=== PATIENT | female | born 1935 | race Two or more races ===

== ENCOUNTER 2024-03-12 16:30 | Emergency (ER) | payer MEDICARE, MEDICAID, SELFPAY ==
[2024-03-12 17:05] VITALS: BP 132/78; PULSE 73; RESP 20; TEMP 37.9; O2SAT 98
--- NOTE | 2024-03-12 17:08 | XR_ITS ---
Examination: PA lateral chest 2 views TECHNIQUE: Upright PA lateral chest 2 views Exam date and time: March 12, 2023 at 1718 hours Comparison April 09, 2020 INDICATIONS: Coughing today. FINDINGS: Early bibasilar pneumonia Normal heart size Prominent hilar regions Moderate osteopenia Increased AP dimension chest Pneumonia also in the right middle lobe with volume loss IMPRESSION: COPD Bibasilar right middle lobe pneumonia
--- NOTE | 2024-03-12 17:08 | XR_ITS ---
Examination: Shoulder,right, 3 views Technique: Shoulder AP internal rotation, AP external rotation, Y view shoulder, 3 views Exam date and time :March 12, 2024 at 1713 hours INDICATIONS: Right shoulder pain beginning one month ago. FINDINGS: Moderate narrowing glenohumeral joint Prominent osteopenia No shoulder fracture or dislocation Prominent calcific tendinitis IMPRESSION: Moderate narrowing glenohumeral joint Prominent calcific tendinitis
--- NOTE | 2024-03-12 17:08 | PD.EDRME ---
Rapid Medical Screening Exam RME Arrival date/time: 03/12/24 16:30 88-year-old female presents emergency department today complaints of difficulty moving the right shoulder Incidentally patient was noted to have low-grade temp Chief Complaint: Extremity Problem,Nontraumatic Vital signs: Vital Signs Temperature 100.2 F 03/12/24 17:05 Pulse Rate 73 03/12/24 17:05 Respiratory Rate 20 03/12/24 17:05 Blood Pressure 132/78 H 03/12/24 17:05 Pulse Oximetry (%) 98 03/12/24 17:05 Oxygen Delivery Method Room Air 03/12/24 17:05
[2024-03-12 17:56] LABS: Lactate (Lactic Acid) 1.6 mMol/L (0.4-2.0)
[2024-03-12 17:59] LABS: Collection Type, Urine Clean Catch
[2024-03-12 18:01] LABS: Basophils % (Auto) 0 % (0-2.5); Eosinophils # (Auto) 0.1 Thou/mm3 (0.0-0.5); Eosinophils % (Auto) 2 % (0-10); Hematocrit 37.6 % (36.0-46.0); Hemoglobin 12.4 g/dL (12.0-16.0); Immature Granulocytes % (Auto) 0 % (0-0); Immature Granulocytes Auto 0.02 Thou/mm3 (0.00-0.00); Lymphocytes % (Auto) 18 % (10-50); Mean Corpuscular Hemoglobin 31.2 pg (25.0-35.0); Mean Corpuscular Volume 95 fL (80-100); Monocytes # (Auto) 0.6 Thou/mm3 (0.0-0.8); Monocytes % (Auto) 10 % (0-12); Neutrophils # (Auto) 3.9 Thou/mm3 (1.8-7.7); Neutrophils % (Auto) 69 % (37-80); Nucleated Red Blood Cell % 0 /100 WBC (0); Platelet Count 196 Thou/mm3 (140-440); RDW Standard Deviation 41.5 fL (36.4-46.3); Red Blood Count 3.97 Miln/mm3 (4.00-5.20); White Blood Count 5.6 Thou/mm3 (3.6-11.0)
[2024-03-12 18:13] LABS: Bilirubin,Urine Negative (Negative); Blood,Urine Negative (Negative); Clarity,Urine Clear (Clear/Hazy); Color,Urine Yellow (Lt Yel-Yel); Glucose, Urine Negative (Negative); Ketones,Urine Negative (Negative); Leukocyte Esterase,Urine Positive (Negative); Nitrite,Urine Negative (Negative); Protein,Urine Negative (Neg - Trace); RBC,Urine 4 /hpf (0-3); Specific Gravity,Urine 1.023 (1.001-1.035); Squamous Epithelial Cell,Urine 1 /hpf (0-5); WBC,Urine 39 /hpf (0-5)
[2024-03-12 18:33] LABS: Alanine Aminotransferase 24 U/L (10-49); Albumin, Serum 4.7 gm/dL (3.4-4.8); Albumin/Globulin Ratio 1.5 (1.2-2.2); Alkaline Phosphatase 146 U/L (46-116); Anion Gap 7 (7-16); Aspartate Amino Transferase 24 U/L (0-34); BUN/Creatinine Ratio 13 Ratio (12-20); Bilirubin,Total 1.5 mg/dL (0.3-1.2); Blood Urea Nitrogen 14 mg/dL (9-23); Calcium 9.7 mg/dL (8.3-10.6); Calcium (Corrected) 9.7 mg/dL (8.5-10.1); Carbon Dioxide 29.4 mMol/L (20.0-31.0); Chloride 100 mMol/L (98-107); Creatinine (Component) 1.1 mg/dL (0.6-1.3); Globulin 3.1 gm/dL (2.3-3.5); Glucose 138 mg/dL (74-106); Osmolality,Calculated 274 (275-295); Potassium 4.6 mMol/L (3.4-5.1); Procalcitonin 0.06 ng/ml (0.0-0.49); Sodium 136 mMol/L (136-145); Total Protein 7.8 gm/dL (5.7-8.2); Uric Acid 5.3 mg/dL (3.1-7.8); eGFR 49 See Note
[2024-03-12 20:40] VITALS: BP 120/84; PULSE 76; RESP 19; TEMP 37.2; O2SAT 96
--- NOTE | 2024-03-12 21:02 | EDNOTE_ITS ---
ED Extremity Problem RME/HPI General Chief complaint: Extremity Problem,Nontraumatic Stated complaint: RIGHT SHOULDER/ARM PAIN x 1 MONTH Arrival date/time: 03/12/24 16:30 RME / HPI RME / HPI Narrative: 03/12/24 16:30 88-year-old female presents emergency department today complaints of difficulty moving the right shoulder Incidentally patient was noted to have low-grade temp ----- Dr. Gutierrez?s Main ED Evaluation: 88yo female with a history of arthritis accompanied by her son presents to the ED for a chief complaint of left shoulder pain x 7-8 days. Son states the patient's left shoulder pain has been progre ssively getting worse over the last 2 days. He took her to her PCP's office today and was given a prescription, but states the [facility] pharmacy was out of stock. He does not know what medication was prescribed. Son states the patient has been taking Tylenol at home without any alleviation of symptoms, so he brought her in for further evaluation. Patient denies any falls or injuries. Denies any other associated symptoms. Denies any history of similar symptoms. No known allergies. Related Data Previous Rx's ?Medication ?Instructions ?Recorded ibuprofen 400 mg tablet 400 mg PO TID PRN pain #9 tabs 03/12/24 lidocaine 5 % topical patch 1 patch topical QDAY #15 ea 03/12/24 (Lidoderm) Allergies Allergy/AdvReac Type Severity Reaction Status Date / Time No Known Allergies Allergy Verified 03/12/24 16:36 Review of Systems Review of Systems Systems Reviewed: All systems reviewed, normal except as documented Narrative Review of Systems: Gen: No fever, no chills, no weight loss EYES: No discharge, no visual changes, no pain HEENT: No ear pain, no congestion, no sore throat PULM: No shortness of breath, no cough, no congestion CV: No chest pain, no dyspnea on exertion, no palpitations GI: No nausea, no vomiting, no diarrhea, no pain, no constipation : No frequency, no urgency, no dysuria Musc/skel: + joint pain, no back pain Skin: No rash. Warm and dry. Psyc: No hallucinations, no depression Heme/Lymph: No easy bleeding or bruising tendencies Neuro: No weakness, no headache Past Medical History Past Medical History NEUROLOGIC: Negative Seizures CARDIAC: Negative Angina, Hypercholesterolemia, Congestive Heart Failure or Hypertension RESPIRATORY: Negative Chronic Obstructive Pulmonary Disease (COPD), Asthma, Tuberculosis or Sleep Apnea GASTROINTESTINAL: Positive Gall Bladder Disease (lap chuy) and Obesity GENITOURINARY: Negative Renal Disease REPRODUCTIVE: Positive Previous Pregnancies () MUSCULOSKELETAL: Positive Musculoskeletal Disorders and Arthritis; Negative Fractures ENT: Positive Cataracts ENDOCRINE: Negative Diabetes Mellitus Type 1 or Diabetes Mellitus Type 2 HEMATOLOGIC: Negative Blood Disorders PSYCHO/SOCIAL: Positive Anxiety OTHER HISTORY: Negative Blood Transfusions, Blood Transfusion Reaction, Anesthesia Reactions or Cancer Family History FAMILY HISTORY: Negative Family Cardiac Disorders, Family Cancer or Family Anesthesia Reaction Social History SMOKING STATUS: Never smoker SUBSTANCE USE: does not use ED Exam Narrative Physical exam: GENERAL APPEARANCE: AxOx4, generally well-appearing, no acute distress. HEENT: NC, AT. MMM. EOMI, clear conjunctiva, oropharynx clear. NECK: Supple without lymphadenopathy. No stiffness or restricted ROM. HEART: Normal rate and regular rhythm, normal S1/S1, no m/r/g LUNGS: CTAB, moving air well. No crackles or wheezes are heard. ABDOMEN: Soft, nontender, nondistended with good bowel sounds heard. BACK: No midline C/T/L spine pain or deformity, No CVAT, no obvious deformity. EXTREMITIES: Without cyanosis, clubbing or edema. No swelling, edema or warmness to the left shoulder. Pain with ROM of the shoulder. Limited abduction of the left shoulder. MUSCULOSKELETAL: FROM of all major joints, no chest tenderness NEUROLOGICAL: Grossly nonfocal. Alert and oriented, moving all 4 extremities. CN not formally tested but appear grossly intact. Observed to ambulate with normal gait. Skin: Warm and dry without Course Course Course Narrative: CXR is ordered for determining the etiology of fever. Quality Measures none Orders Category Date Time Status Bedside COVID-19 Antigen Test NOW Care 03/12/24 17:08 Active Bedside Influenza A&B Antigen Test NOW Care 03/12/24 17:08 Completed XR chest 2V Stat Exams 03/12/24 17:08 Completed XR shoulder RT min 2V Stat Exams 03/12/24 17:08 Completed Blood Culture (Lab) Stat Lab 03/12/24 17:35 Received CBC Stat Lab 03/12/24 17:33 Completed Comprehensive Metabolic Panel Stat Lab 03/12/24 17:33 Completed Lactate (Lactic Acid) Stat Lab 03/12/24 17:33 Completed Procalcitonin Stat Lab 03/12/24 17:33 Completed Uric Acid Stat Lab 03/12/24 17:33 Completed Urinalysis Stat Lab 03/12/24 17:45 Completed Urine Culture Stat Lab 03/12/24 17:45 Received Ibuprofen Tab [Motrin Tab] Med 03/12/24 21:04 Discontinued 400 mg PO X1 ONE Lidocaine 5% Patch Med 03/12/24 21:04 Discontinued 1 patch TOP X1 ONE Vital Signs Vital signs: Vital Signs Temperature 100.2 F 03/12/24 17:05 Pulse Rate 73 03/12/24 17:05 Respiratory Rate 20 03/12/24 17:05 Blood Pressure 132/78 H 03/12/24 17:05 Pulse Oximetry (%) 98 03/12/24 17:05 Oxygen Delivery Method Room Air 03/12/24 17:05 Pulse ox is 98% on room air, which is normal according to my interpretation. Extremity Problem MDM Narrative MDM Narrative:: Scribe Attestation: 03/12/24 - Rasheeda Nieto am scribing for and in the presence of Dr. Gutierrez. Patient data External records reviewed:: [facility] previous records (Per chart review, patient has no relevant previous ED visits.) Clinical information provided by:: patient and family Social determinants that could affect healthcare access:: none Patient has the following chronic illnesses:: CKD, arthritis How is presenting disease/condition affected by chronic disease/condition?: caused by Evaluation data The following diagnostics were reviewed and interpreted by me:: lab results and radiology exam(s) Lab and/or radiology exams considered but not ordered:: none Interpretation Summary: CBC is normal, Creatinine is normal, eGFT is 49, Lactic Acid is normal, Procalcitonin is normal, according to my interpretation. ---- [place] [facility] Report Signed Patient: LEXX PONCE [facility] Record#: [id number] Birthdate: 1935 Age/Sex: 88 / F Location: [facility] Attending Dr: Ordering Physician: Ann Marie (ANTONIO)Servando NP Date of Service: 03/12/24 Procedure(s): XR chest 2V Accession Number(s): [id number] cc: Ann Marie CELAYA),Servando ALVAREZ; Ghulam Ramirez MD~ Examination: PA lateral chest 2 views TECHNIQUE: Upright PA lateral chest 2 views Exam date and time: March 12, 2023 at 1718 hours Comparison April 09, 2020 INDICATIONS: Coughing today. FINDINGS: Early bibasilar pneumonia Normal heart size Prominent hilar regions Moderate osteopenia Increased AP dimension chest Pneumonia also in the right middle lobe with volume loss IMPRESSION: COPD Bibasilar right middle lobe pneumonia Dictated By: Ghulam Ramirez MD Signed By: <Electronically signed by Ghulam Ramirez MD in [place]> 03/12/245 [facility] Report Signed Patient: LEXX PONCE Record#: [id number] Birthdate: 1935 Age/Sex: 88 / F Location: [facility] Attending Dr: Ordering Physician: Ann Marie CELAYA),Servando ALVAREZ Date of Service: 03/12/24 Procedure(s): XR shoulder RT min 2V Accession Number(s): [id number] cc: Ann Marie (ANTONIO),Servando ALVAREZ; Ghulam Ramirez MD~ Examination: Shoulder,right, 3 views Technique: Shoulder AP internal rotation, AP external rotation, Y view shoulder, 3 views Exam date and time :March 12, 2024 at 1713 hours INDICATIONS: Right shoulder pain beginning one month ago. FINDINGS: Moderate narrowing glenohumeral joint Prominent osteopenia No shoulder fracture or dislocation Prominent calcific tendinitis IMPRESSION: Moderate narrowing glenohumeral joint Prominent calcific tendinitis Dictated By: Ghulam Ramirez MD Signed By: <Electronically signed by Ghulam Ramirez MD in [place]> 03/12/24 1736 Medications / Prescriptions Medications or Prescriptions considered but not ordered:: none Medication administrations:: Medication Administration History Discontinued Medications Ibuprofen (Ibuprofen Tab 400 Mg Tablet) 400 mg PO X1 ONE Stop: 03/12/24 21:05 Lidocaine (Lidocaine 5% 1 Patch) 1 patch TOP X1 ONE Stop: 03/12/24 21:05 see above Consultations Consultation(s) initiated? (list below): No Diagnosis Extremity Problem Differential Diagnosis: other (osteoarthritis, shoulder dislocation, pathological fracture) Most likely diagnosis given after review of the tests above:: osteoarthritis Admission Indicated Admission indicated?: not indicated Explain why admission is indicated or not indicated:: Admission criteria not met. patient is stable for outpatient management. Prescriptions for ibuprofen and lidocaine patches are sent to the pharmacy. Admission Request Was there a request for admission?: No Disposition Plan Disposition Plan: Discharge Discharge Attestation Discharge Attestation: The patient and all family members were given an opportunity to ask questions and understood the discharge instructions. Discharge instructions specifically effects, indications for sooner follow up or return to the emergency department, and the expected course of current diagnosis. Patient condition: Stable Discharge Plan Plan Patient Disposition: HOME (Self Care) Prescriptions/Referrals Prescriptions/Med Rec: New ibuprofen 400 mg tablet 400 mg PO TID MDD 3 tabs/day PRN (Reason: pain) Qty: 9 0RF lidocaine [Lidoderm] 5 % adhesive patch,medicated 1 patch topical QDAY Qty: 15 0RF Rx Instructions: leave on most painful area for up to 12 hrs Referrals: Kermit Amador MD [Primary Care Provider] - In 1 week Problem List Clinical Impression: Osteoarthritis Patient/Caregiver Discharge Instructions Education Materials: ED Osteoarthritis Additional Instructions: Rupal un seguimiento con ibrahim m?dico de atenci?n primaria en 3 a 5 d?as para volver a controlarlo. Puede regresar al departamento de emergencias si los s?ntomas empeoran o si tiene alg?n problema nuevo o preocupante. Print Language: Telugu Stand Alone Forms: Gloria Award Info., Patient Portal Info Letter
[2024-03-12] MEDS: IBUPROFEN TAB 400 MG TABLET PO (21:17)
[2024-03-12] MEDS: LIDOCAINE 5% 1 PATCH TOP (21:17)
== END 2024-03-12 21:25 | disposition home or self-care (01) ==
PROVIDERS: Nurse Practitioner Primary Care; Emergency Provider Emergency Medicine; PCP Family Medicine
DX: M19.011 Primary osteoarthritis, right shoulder (principal); M25.811 Other specified joint disorders, right shoulder; M75.31 Calcific tendinitis of right shoulder; J44.0 Chronic obstructive pulmonary disease with (acute) lower respiratory infection; J18.9 Pneumonia, unspecified organism
CPT/HCPCS: 36415; 71046; 73030; 80053; 81001; 83605; 84145; 84550; 85025; 87040; 87086; 87400; 87811; 99283; A9270

== ENCOUNTER → 2024-04-15 | Outpatient (CLI) | payer MEDICARE, MEDICAID, SELFPAY ==
[2024-04-14 11:00] LABS: Basophils % (Auto) 0 % (0-2.5); Eosinophils # (Auto) 0.1 Thou/mm3 (0.0-0.5); Eosinophils % (Auto) 3 % (0-10); Hemoglobin 12.7 g/dL (12.0-16.0); Immature Granulocytes % (Auto) 0 % (0-0); Immature Granulocytes Auto 0.01 Thou/mm3 (0.00-0.00); Lymphocytes # (Auto) 1.5 Thou/mm3 (1.0-4.8); Lymphocytes % (Auto) 34 % (10-50); Mean Corpuscular HGB Conc 32.6 g/dl (31.0-37.0); Mean Corpuscular Hemoglobin 31.3 pg (25.0-35.0); Mean Corpuscular Volume 96 fL (80-100); Monocytes # (Auto) 0.3 Thou/mm3 (0.0-0.8); Monocytes % (Auto) 7 % (0-12); Neutrophils # (Auto) 2.5 Thou/mm3 (1.8-7.7); Neutrophils % (Auto) 55 % (37-80); Nucleated Red Blood Cell % 0 /100 WBC (0); Platelet Count 144 Thou/mm3 (140-440); RDW Standard Deviation 43.8 fL (36.4-46.3); Red Blood Count 4.06 Miln/mm3 (4.00-5.20); White Blood Count 4.5 Thou/mm3 (3.6-11.0)
[2024-04-14 11:16] LABS: Partial Thromboplastin Time 27.6 Seconds (22.0-36.0); Prothrombin Time 11.3 Seconds (9.0-12.2)
--- NOTE | 2024-04-15 08:30 | XR_ITS ---
Examination: Thyroid sonography complete TECHNIQUE: Grayscale sonographic images thyroid lobes are carful analysis Exam date and time: April 15 at 0930 hours INDICATIONS: History thyroid palpable mass on clinical examination this month FINDINGS: Right thyroid 4.4 x 1.7 x 1.8 cm Upper pole nodule 9 x 4 x 8 mm Lower pole complex cyst 2.4 x 2.0 x 2.1 cm Left thyroid 3.9 x 1.2 x 1.3 cm Small upper pole nodule 6 x 5 mm, 6 x 5 mm, 6 x 4 mm IMPRESSION: Thyroid nodules as above Complex possibly infected cyst in the lower pole right thyroid 2.1 x 2.0 x 2.1 cm
--- NOTE | 2024-04-15 09:00 | XR_ITS ---
Examination: Ultrasound-guided fine needle percutaneous aspiration right thyroid cyst Thyroid sonography, limited Exam date and time: April 15, 2024 0941 hours INDICATIONS: Complex lower pole right thyroid cyst on thyroid sonogram today. Technique: A timeout was completed verifying correct patient, procedure, site, positioning and special equipment if applicable. The patient was placed in supine position for the thyroid fine needle percutaneous aspiration The patient's right neck was prepped and draped in sterile fashion. Maximum barrier sterile technique, hand hygiene, ultrasound sterile technique. 1% lidocaine was used to anesthetize the skin and subcutaneous tissues to the patient's right thyroid nodule. Aspiration of grossly purulent 12 cc fluid from the complex cyst Specimens appears satisfactory. The attending radiologist was present for the entire procedure. Estimated blood loss 3 cc. The patient tolerated the procedure well and there were no complications. Impression: Successful ultrasound-guided fine-needle percutaneous aspiration infected appearing right thyroid cyst Full cytologic and culture and sensitivity report to follow
== END | disposition home or self-care (01) ==
LOC: SIRX 08:13
PROVIDERS: Radiology Diagnostic Radiology; PCP Family Medicine; Referring Provider Family Medicine; Visit Provider Family Medicine
DX: E04.2 Nontoxic multinodular goiter (principal); Z01.812 Encounter for preprocedural laboratory examination
CPT/HCPCS: 10005; 36415; 76536; 85025; 85610; 85730; 87070; 87075; 87205

== ENCOUNTER → 2024-05-25 | Outpatient (CLI) | payer MEDICARE, MEDICAID, SELFPAY ==
[2024-05-25 09:59] LABS: Collection Type, Urine Clean Catch; Squamous Epithelial Cell,Urine 0 /hpf (0-5)
[2024-05-25 10:15] LABS: Basophils % (Auto) 0 % (0-2.5); Eosinophils # (Auto) 0.3 Thou/mm3 (0.0-0.5); Eosinophils % (Auto) 7 % (0-10); Hematocrit 38.7 % (36.0-46.0); Hemoglobin 12.7 g/dL (12.0-16.0); Immature Granulocytes % (Auto) 1 % (0-0); Immature Granulocytes Auto 0.02 Thou/mm3 (0.00-0.00); Lymphocytes # (Auto) 1.3 Thou/mm3 (1.0-4.8); Lymphocytes % (Auto) 33 % (10-50); Mean Corpuscular HGB Conc 32.8 g/dl (31.0-37.0); Mean Corpuscular Hemoglobin 31.5 pg (25.0-35.0); Mean Corpuscular Volume 96 fL (80-100); Monocytes # (Auto) 0.3 Thou/mm3 (0.0-0.8); Monocytes % (Auto) 7 % (0-12); Neutrophils # (Auto) 2.1 Thou/mm3 (1.8-7.7); Neutrophils % (Auto) 52 % (37-80); Nucleated Red Blood Cell % 0 /100 WBC (0); Platelet Count 169 Thou/mm3 (140-440); RDW Standard Deviation 44.4 fL (36.4-46.3); Red Blood Count 4.03 Miln/mm3 (4.00-5.20)
[2024-05-25 10:22] LABS: Bilirubin,Urine Negative (Negative); Blood,Urine Negative (Negative); Clarity,Urine Clear (Clear/Hazy); Color,Urine Lt-Yellow (Lt Yel-Yel); Culture Indicated,Urine Not Indicated; Glucose, Urine Negative (Negative); Ketones,Urine Negative (Negative); Leukocyte Esterase,Urine Negative (Negative); Nitrite,Urine Negative (Negative); PH,Urine 5.5 (5.0-7.0); Protein,Urine Negative (Neg - Trace); RBC,Urine 3 /hpf (0-3); Urobilinogen,Urine Negative mg/dL (0.0-1.0); WBC,Urine 1 /hpf (0-5)
[2024-05-25 10:36] LABS: Albumin, Serum 4.4 gm/dL (3.4-4.8); Anion Gap 7 (7-16); BUN/Creatinine Ratio 24 Ratio (12-20); Blood Urea Nitrogen 26 mg/dL (9-23); Calcium 9.5 mg/dL (8.3-10.6); Calcium (Corrected) 9.5 mg/dL (8.5-10.1); Carbon Dioxide 28.3 mMol/L (20.0-31.0); Chloride 108 mMol/L (98-107); Creatinine (Component) 1.1 mg/dL (0.6-1.3); Glucose 90 mg/dL (74-106); Osmolality,Calculated 289 (275-295); Phosphorous 3.8 mg/dL (2.4-5.1); Potassium 5.1 mMol/L (3.4-5.1); Sodium 143 mMol/L (136-145); eGFR 49 See Note
[2024-05-25 13:09] LABS: Parathyroid Hormone Intact 57.6 pg/ml (18.5-88.0)
== END | disposition home or self-care (01) ==
LOC: COPL 09:36
PROVIDERS: PCP Family Medicine; Referring Provider Internal Medicine; Visit Provider Internal Medicine
DX: N18.30 Chronic kidney disease, stage 3 unspecified (principal)
CPT/HCPCS: 36415; 80069; 81001; 83970; 85025

== ENCOUNTER → 2024-08-12 | Outpatient (CLI) | payer MEDICARE, MEDICAID, SELFPAY ==
--- NOTE | 2024-08-12 10:00 | XR_ITS ---
Examination: Thyroid sonography complete TECHNIQUE: Grayscale sonographic images thyroid lobes Date and time: August 12, 2024 1024 hours Comparison January 13, 2025 INDICATIONS: Thyroid sonogram April 15, 2024 right thyroid upper pole nodule 9 mm lower pole complex cyst 24 mm Left thyroid upper pole nodule 6 mm, 6 mm, 6 mm FINDINGS: Right thyroid 4.0 cm Upper pole nodule 8 x 6 mm Lower pole cyst 5 x 4 mm Lower pole cyst with internal echogenicity 13 x 8 mm Left thyroid 3.5 cm Upper pole nodules 7 x 5 mm, 7 x 5 mm Lower pole cyst 4 x 3 mm Multiple smaller nodules IMPRESSION: Bilateral thyroid nodules as above
== END | disposition home or self-care (01) ==
LOC: CDIM 10:08
PROVIDERS: PCP Family Medicine; Referring Provider Family Medicine; Visit Provider Family Medicine
DX: E04.2 Nontoxic multinodular goiter (principal)
CPT/HCPCS: 76536

== ENCOUNTER → 2024-10-29 | Outpatient (CLI) | payer MEDICARE, MEDICAID, SELFPAY ==
[2024-10-29 09:33] LABS: Parathyroid Hormone Intact 49.3 pg/ml (18.5-88.0)
[2024-10-29 09:39] LABS: Albumin, Serum 4.2 gm/dL (3.4-4.8); Anion Gap 11 (7-16); BUN/Creatinine Ratio 15 Ratio (12-20); Blood Urea Nitrogen 16 mg/dL (9-23); Calcium 9.9 mg/dL (8.3-10.6); Calcium (Corrected) 9.9 mg/dL (8.5-10.1); Carbon Dioxide 29.3 mMol/L (20.0-31.0); Chloride 107 mMol/L (98-107); Creatinine (Component) 1.1 mg/dL (0.6-1.3); Free T4 (Free Thyroxine) 1.17 ng/dL (0.89-1.76); Glucose 88 mg/dL (74-106); Osmolality,Calculated 292 (275-295); Phosphorous 3.4 mg/dL (2.4-5.1); Potassium 4.5 mMol/L (3.4-5.1); Sodium 147 mMol/L (136-145); Thyroid Stimulating Hormone 6.30 uIU/mL (0.55-4.78); eGFR 49 See Note
[2024-10-29 11:05] LABS: Creatinine,Random Urine 84 mg/dL (30-125)
== END | disposition home or self-care (01) ==
LOC: COPL 08:34
PROVIDERS: PCP Family Medicine; Referring Provider Internal Medicine; Visit Provider Internal Medicine
DX: I12.9 Hypertensive chronic kidney disease with stage 1 through stage 4 chronic kidney disease, or unspecified chronic kidney disease (principal); N18.30 Chronic kidney disease, stage 3 unspecified; E03.9 Hypothyroidism, unspecified
CPT/HCPCS: 36415; 80069; 82570; 83970; 84439; 84443

== ENCOUNTER → 2025-01-31 | Outpatient (CLI) | payer MEDICARE, MEDICAID, SELFPAY ==
[2025-01-31 11:10] LABS: Basophils # (Auto) 0.0 Thou/mm3 (0.0-0.2); Basophils % (Auto) 0 % (0-2.5); Eosinophils # (Auto) 0.2 Thou/mm3 (0.0-0.5); Eosinophils % (Auto) 4 % (0-10); Hematocrit 39.2 % (36.0-46.0); Hemoglobin 12.8 g/dL (12.0-16.0); Immature Granulocytes Auto 0.01 Thou/mm3 (0.00-0.00); Lymphocytes # (Auto) 1.4 Thou/mm3 (1.0-4.8); Lymphocytes % (Auto) 31 % (10-50); Mean Corpuscular HGB Conc 32.7 g/dl (31.0-37.0); Mean Corpuscular Hemoglobin 32.4 pg (25.0-35.0); Mean Corpuscular Volume 99 fL (80-100); Monocytes # (Auto) 0.4 Thou/mm3 (0.0-0.8); Monocytes % (Auto) 9 % (0-12); Neutrophils # (Auto) 2.5 Thou/mm3 (1.8-7.7); Neutrophils % (Auto) 56 % (37-80); Nucleated Red Blood Cell # 0.00 Thou/mm3 (0.00-0.00); Nucleated Red Blood Cell % 0 /100 WBC (0); Platelet Count 191 Thou/mm3 (140-440); RDW Standard Deviation 44.9 fL (36.4-46.3); Red Blood Count 3.95 Miln/mm3 (4.00-5.20); White Blood Count 4.5 Thou/mm3 (3.6-11.0)
[2025-01-31 11:20] LABS: Alanine Aminotransferase 12 U/L (10-49); Albumin, Serum 4.7 gm/dL (3.4-4.8); Alkaline Phosphatase 101 U/L (46-116); Anion Gap 9 (7-16); Aspartate Amino Transferase 25 U/L (0-34); BUN/Creatinine Ratio 14 Ratio (12-20); Bilirubin,Direct 0.6 mg/dL (0.0-0.3); Bilirubin,Total 2.0 mg/dL (0.3-1.2); Blood Urea Nitrogen 15 mg/dL (9-23); Calcium 9.8 mg/dL (8.3-10.6); Carbon Dioxide 29.0 mMol/L (20.0-31.0); Cardiac Risk Estimate 3.1 RATIO (3.7-5.6); Chloride 107 mMol/L (98-107); Cholesterol 193 mg/dL (132-200); Creatinine (Component) 1.1 mg/dL (0.6-1.3); Free T4 (Free Thyroxine) 1.39 ng/dL (0.89-1.76); Glucose 91 mg/dL (74-106); HDL Cholesterol 63 mg/dL (40-60); LDL Cholesterol,Calculated 109 mg/dL (0-130); Osmolality,Calculated 289 (275-295); Potassium 4.9 mMol/L (3.4-5.1); Sodium 145 mMol/L (136-145); Thyroid Stimulating Hormone 3.50 uIU/mL (0.55-4.78); Total Protein 7.6 gm/dL (5.7-8.2); Triglycerides 104 mg/dL (30-150); eGFR 48 See Note
== END | disposition home or self-care (01) ==
PROVIDERS: PCP Internal Medicine Cardiovascular Disease; Referring Provider Internal Medicine Cardiovascular Disease; Visit Provider Internal Medicine Cardiovascular Disease
DX: I10 Essential (primary) hypertension (principal); E78.5 Hyperlipidemia, unspecified; E07.9 Disorder of thyroid, unspecified
CPT/HCPCS: 36415; 80048; 80061; 80076; 84439; 84443; 85025